=== PATIENT | female | born 1955 | race Caucasian/White ===

== ENCOUNTER 2021-03-17 08:44 | Outpatient (REF) | payer MEDICARE, MEDICAID, SELFPAY | END 2021-03-17 08:45 | disposition home or self-care (01) | LOC: HO.LAB 08:44 | PROVIDERS: Visit Provider Internal Medicine | DX: Z20.822 Contact with and (suspected) exposure to COVID-19 (principal) | CPT/HCPCS: C9803; U0003; U0005 ==

== ENCOUNTER 2021-06-09 11:06 | Outpatient (REF) | payer MEDICARE, OTHER, SELFPAY ==
--- NOTE | ~2021-06-09 | XR_ITS ---
EXAMINATION: XR KNEE, LEFT XR KNEE, RIGHT XR KNEE, BILATERAL STANDING CLINICAL INFORMATION: Pain. COMPARISON: 04/12/2014 TECHNIQUE: AP standing view of both knees. Lateral and sunrise view of both knees. FINDINGS: Left knee: No fracture or subluxation. Mild medial compartment joint space narrowing. Small medial compartment marginal osteophytes which are increased from prior. Small patellofemoral compartment marginal osteophytes with mild narrowing of the joint space. No joint effusion. Right knee: No fracture or subluxation. Mild medial compartment joint space narrowing which is similar to prior. The patellofemoral compartment joint space is maintained with small marginal osteophytes. No joint effusion. XR/XR knee RT 2V IMPRESSION: Mild degenerative change of both knees. Mild progression from prior.
--- NOTE | ~2021-06-09 | XR_ITS ---
EXAMINATION: XR KNEE, LEFT XR KNEE, RIGHT XR KNEE, BILATERAL STANDING CLINICAL INFORMATION: Pain. COMPARISON: 04/12/2014 TECHNIQUE: AP standing view of both knees. Lateral and sunrise view of both knees. FINDINGS: Left knee: No fracture or subluxation. Mild medial compartment joint space narrowing. Small medial compartment marginal osteophytes which are increased from prior. Small patellofemoral compartment marginal osteophytes with mild narrowing of the joint space. No joint effusion. Right knee: No fracture or subluxation. Mild medial compartment joint space narrowing which is similar to prior. The patellofemoral compartment joint space is maintained with small marginal osteophytes. No joint effusion. XR/XR knee standing BI IMPRESSION: Mild degenerative change of both knees. Mild progression from prior.
--- NOTE | ~2021-06-09 | XR_ITS ---
EXAMINATION: XR KNEE, LEFT XR KNEE, RIGHT XR KNEE, BILATERAL STANDING CLINICAL INFORMATION: Pain. COMPARISON: 04/12/2014 TECHNIQUE: AP standing view of both knees. Lateral and sunrise view of both knees. FINDINGS: Left knee: No fracture or subluxation. Mild medial compartment joint space narrowing. Small medial compartment marginal osteophytes which are increased from prior. Small patellofemoral compartment marginal osteophytes with mild narrowing of the joint space. No joint effusion. Right knee: No fracture or subluxation. Mild medial compartment joint space narrowing which is similar to prior. The patellofemoral compartment joint space is maintained with small marginal osteophytes. No joint effusion. XR/XR knee LT 2V IMPRESSION: Mild degenerative change of both knees. Mild progression from prior.
== END 2021-06-09 11:07 | disposition home or self-care (01) ==
LOC: HO.HOSX 11:06
PROVIDERS: PCP Internal Medicine; Visit Provider Physician Assistant
DX: M17.12 Unilateral primary osteoarthritis, left knee (principal); M25.50 Pain in unspecified joint
CPT/HCPCS: 73560; 73565; 99202

== ENCOUNTER 2021-08-28 13:00 | Outpatient (RCR) | payer MEDICARE, OTHER, SELFPAY ==
--- NOTE | 2021-07-07 09:56 | MHC.PT.EP ---
[facility] [place] Office [place] [facility] [place] Office [address] Malvin Valdez [address] [phone] F: [phone] F: [phone] F: [phone] F: [phone] Physical Therapy Plan of Care Date of Evaluation: Date of Surgery: Diagnosis: This is a 66 yo female presenting to skilled PT with with a script for unilateral primary OA, L knee osteo Assessment: This is a 66 yo female presenting to skilled PT with with a script for unilateral primary OA, L knee osteo . She reports her pain started years ago and has been on and off and getting worse since 3 months ago, intermittent in nature (also reports R knee pain). She is being followed by [facility] ortho and is holding on cortisone injections now while trialing PT and referred to rheumatology as well. She is not currently taking anything for the pain but has taken meloxicam and prednisone in the past and Tylenol/ibuprofen as needed now. Pain is located throughout the patella on the L and described as stabbing and achy. Pain increases with bending, squatting, kneeling and going up stairs. Pain decreases with rest. She uses heat when it flares up but states it does not help. The patient also has knee sleeves at home that she hasn't really used. She does not have an appointment to return to ortho. Assessment reveals pain that ranges up to a 6/10. She demos decreased BLE hip ROM, decreased BLE hip strength, impaired gait pattern with pain, impaired joint mobility with crepitus at patella as well as gross functional decline and fear with squatting, bending, kneeling and walking. She is a good candidate for skilled PT 2x/wk for 4 wks however is weary about the benefits of PT so spent time educating her and convincing her. She wants an MRI Frequency and Duration: The patient will be seen 2x/wk for 5wks Short Term Goals: I in HEP Demo hip hinge without cues from PT Tolerate 10 time sit to stand with proper techniques Shelter Goals: Improve hip MMT to at least 4+/5 Demo good squat techniques without pain or fear Improve LEFs by 10 Tolerate treadmill walking for 10 mins Treatment Plan: Modalities to reduce pain, spasms and effusion. Manual therapy to restore motion and function. Therapeutic exercise to improve strength and flexibility. Neuromuscular re-education for posture and balance. Therapeutic activities to return to functional activities of daily living. Electronically signed by: Elyssa Sánchez PT Please sign and return to therapist. Thank you for your referral.
--- NOTE | 2021-09-25 15:29 | MHC.PT.DC ---
[facility] [place] Office [place] Office [place] Office [address] Malvin Valdez [address] [phone] F: [phone] F: [phone] F: [phone] F: [phone] Physical Therapy Discharge Report Diagnosis: This is a 66 yo female presenting to skilled PT with with a script for unilateral primary OA, L knee osteo Date of Surgery: Date of Evaluation: 07/07/21 Date of Discharge: 09/25/21 Treatments to Date: 8 Cancellations to Date: 0 No Shows to Date: 0 Discharge Status: Independent with HEP Patient Elected to Stop Recommend MD Follow-up Discharge Summary: Patient reports unchanging symptoms. She is noncompliant with HEP but did exercises when she came to the clinic. She does not feel like she is progressing with pain. Educated her on holding PT at this time due to lack of change. Educated her to call the referring MD at this time (she has an appt one week from today for a cortisone injection). Educated on her need to continue exercises at home in the mean time. Continues to wear the same footwear; we discussed on need for new shoes. DC'd chart/patient to HEP after 30 days. Electronically signed by: Elyssa Sánchez PT Please sign and return to therapist. Thank you for your referral.
== END 2021-09-25 15:29 | disposition home or self-care (01) ==
LOC: HO.PTCHIC 13:00
PROVIDERS: PCP Internal Medicine; Visit Provider Physician Assistant
DX: M17.12 Unilateral primary osteoarthritis, left knee (principal)
CPT/HCPCS: 97110; 97162

== ENCOUNTER → 2021-09-04 11:25 | Outpatient (BNVA) | payer MEDICARE, OTHER, SELFPAY | PROVIDERS: PCP Internal Medicine; Visit Provider Physician Assistant | DX: M17.12 Unilateral primary osteoarthritis, left knee (principal) | CPT/HCPCS: 20610; 99212; J1040 ==

== ENCOUNTER → 2021-10-06 09:18 | Outpatient (BNVA) | payer MEDICARE, OTHER, SELFPAY | PROVIDERS: PCP Internal Medicine; Visit Provider Nurse Practitioner Family | DX: M47.816 Spondylosis without myelopathy or radiculopathy, lumbar region (principal); R20.0 Anesthesia of skin; R20.2 Paresthesia of skin; G89.29 Other chronic pain; M25.562 Pain in left knee | CPT/HCPCS: 99202 ==

== ENCOUNTER 2021-12-08 12:26 | Outpatient (REF) | payer MEDICARE, OTHER, SELFPAY ==
[2021-12-08 14:19] LABS: Erythrocyte Sedimentation Rate 21 MM/HR (0-20)
== END 2021-12-08 12:27 | disposition home or self-care (01) ==
LOC: HO.10HDL 12:26
PROVIDERS: Visit Provider Nurse Practitioner Family
DX: M17.12 Unilateral primary osteoarthritis, left knee (principal); M47.816 Spondylosis without myelopathy or radiculopathy, lumbar region
CPT/HCPCS: 36415; 85652; 86140; 99212

== ENCOUNTER 2022-06-26 15:21 | Outpatient (REF) | payer MEDICARE, OTHER, SELFPAY ==
[2022-06-26 16:13] LABS: Influenza A PCR NEGATIVE (Negative); Influenza B PCR NEGATIVE (Negative); Resp Syncy Virus RNA Qual PCR NEGATIVE (Negative); SARS COV2 PCR INHOUSE NEGATIVE (Negative)
== END 2022-06-26 15:22 | disposition home or self-care (01) ==
LOC: HO.LNP 15:21
PROVIDERS: Visit Provider Physician Assistant Medical
DX: Z20.822 Contact with and (suspected) exposure to COVID-19 (principal); R05.9 Cough, unspecified
CPT/HCPCS: 0241U

== ENCOUNTER 2023-03-02 13:03 | Outpatient (AMB) | payer MEDICARE, OTHER, SELFPAY ==
--- NOTE | 2023-03-02 13:25 | AM.OFFWIN_ITS ---
Intake Vital Signs 03/02/23 13:27 Height 5 ft 2 in Weight 190 lb BMI 34.7 BP 134/62 Blood Pressure Location Rt brachial Position Sitting Pulse 72 Pulse Source Pulse Oximeter Temp 97.2 F Temp Source Temporal Artery Scan Pulse Oximetry (%) 97 Oxygen Delivery Method Room Air Intake Visit Reasons: EST/vertigo/high bp?(lobby) Intake Note: Pt is here c/o vertigo and a blood pressure check. Patient Tobacco Use Status: Never used Tobacco Allergies No Known Allergies Allergy (Verified 03/02/23 13:26) Medication List - Last Reconciled 03/02/23 by Gillian Boss PA-C calcium carbonate-vitamin D3 600 mg-25 mcg (1,000 unit) caps PO erythromycin 0.5 inches ophthalmic (eye) TID ibuprofen 400 mg PO Q8H PRN meclizine 25 mg PO BID PRN ondansetron HCl 4 mg PO Q8H PRN oxybutynin chloride ER 5 mg PO DAILY pravastatin 20 mg PO DAILY sertraline 100 mg PO DAILY [shoe orthotics As directed] HPI HPI Comments History of Present Illness Details Patient is a 67yo F who presents with dizziness complaint She has hx of back pain and joint pain She states unsure if she has vertigo Woke up yesteray am felt strange but was able to drive and was feeling better Later when she bent over she felt dizziness swaying that is worse with bending over She has symptoms constantly now to a low degree States she finds it difficult to focus or read. Did not drive here She said + mild headache earlier but resolved; 0/10 now No HT or LOC Wears glasses and said no double vision or floaters No CP or SOB or palpitations No numbness, tingling or weakness to extremities She previously had cough 2 weeks ago but resolved Feels like fullness in head. No runny nose or sinus pressure. + ear wax She said she was on oxybutin and they switched to a different one 1 month ago. No other medication changes Family hx of HTN and ? heart condition Negative covid today at home PFSH Medical History High cholesterol Surgical History History of carpal tunnel surgery Hx laparoscopic cholecystectomy Hx of colonoscopy Family History Father Diabetes Mother Diabetes Sister Melanoma Other Breast cancer Social History Household Members: Family Housing: House Alcohol intake: never Patient Tobacco Use Status: Never used Tobacco e-Cigarette/Vaping Use: Never Used service: No Current occupational status: retired Current occupation: rt hand Review of Systems Const Denies body aches, Denies fever(s), Reports headache(s) (one earlier but resolved) and Denies poor appetite Eyes Denies diplopia, Denies eye discharge, Denies loss of vision, Denies other visual disturbances, Reports requires corrective lenses, Denies spots in vision and Denies tunnel vision ENT Reports vertigo, Reports dizziness, Denies ear discharge, Reports headache(s) (one earlier but resolved), Denies nasal discharge and Denies sore throat Card Denies chest pain, Denies syncope, Denies rapid heart rate and Denies dyspnea Resp Denies cough and Denies dyspnea GI Denies abdominal pain, Denies diarrhea, Denies nausea and Denies vomiting Musc Denies abnormal gait and Denies tingling Neuro Denies Abnormal speech present, Denies abnormal gait, Denies confusion, Reports vertigo, Reports dizziness, Denies syncope, Reports headache(s) (one earlier but resolved), Denies focal weakness, Denies loss of vision, Denies memory loss and Denies tingling Psych Denies confusion and Denies memory loss Physical Exam Vital Signs: Last Vital Signs Temp 97.2 F 03/02/23 13:27 Pulse 72 03/02/23 13:27 BP 134/62 03/02/23 13:27 Pulse Ox 97 03/02/23 13:27 Oxygen Delivery Method Room Air 03/02/23 13:27 BMI result Body Mass Index 34.7 General: Non-toxic, NAD. Speaking full sentences. Skin: Warm dry throughout Eye: PERRL, EOMI without nystagmus HENT: Airway patent. Uvula midline. No pharyngeal erythema or edema. No MERCHANDISING LEAD. + cerumen bilaterally. After cerumen removal; Bilateral canals clear. TM non-erythematous, non-bulging. No TM perforation or hemotympanum noted. Respiratory: CTA bilaterally. No wheezes, rales or rhonchi Cardiac: RRR. No murmur Neurology: A/O x 3. CN 2-12 grossly intact. Negative pronator drift. Finger to nose tracing equal bilaterally. Minimal sway with Rhomberg. No aphasia or facial droop. Equal strength 5/5 toolmaker grade three and lower extremities at knees and ankles. Gait without abnormality Psych: Good mood and affect Const General: No confusion Orientation/consciousness: No confusion Neuro General: No confusion Speech: No Abnormal speech present Office Procedures Cerumen Removal From which ear canal was the cerumen removed: bilateral Removal: otoscope w/curette Notes: patient tolerated procedure well, no complications and ear canal clear [id number] Wax Removal by Spoon/Curette Assessment & Plan Assessment & Plan (1) Dizziness: Code(s): R42 - Dizziness and giddiness (2) Impacted cerumen of both ears: Code(s): H61.23 - Impacted cerumen, bilateral Plan Patient seen and evaluated. She has no neurological deficit on examination and vitals are WNL COVID test was negative a home Discussed in depth differential for dizziness Will hydrate at home Meclazine for dizziness as discussed. With food. Avoid driving with symptoms and medication Discussed posterior CVA is on differential and can not be ruled out in UC. If symptoms unresolved with meclazine, worsen, onset weakness etc go immediately to the ED Patient gave verbal understanding and had no additional questions or concerns at time of discharge F/U with PCP and ED if worse as discussed above. Discussed case with attending prior to d/c All questions answered Medications: New meclizine 25 mg PO BID PRN 14 tabs 0RF dizziness R42 - Dizziness and giddiness Coding Level of Care Code Est Pt Level 3 (65261) Diagnoses Dizziness R42 Impacted cerumen of both ears H61.23 CPT Codes Office Procedure - CPT: 77596-Iqg Wax Removal by Spoon/Curette ([id number])
[2023-03-02 13:27] VITALS: BP 134/62; PULSE 72; TEMP 36.2; O2SAT 97; BMI 34.7
== END 2023-03-02 14:04 | disposition home or self-care (01) ==
PROVIDERS: PCP Internal Medicine; Visit Provider Physician Assistant
DX: R42 Dizziness and giddiness (principal); H61.23 Impacted cerumen, bilateral
CPT/HCPCS: 69210; 99213

== ENCOUNTER 2023-03-14 14:29 | Emergency (ER) | payer MEDICARE, OTHER, SELFPAY ==
--- NOTE | ~2023-03-14 | CT_ITS ---
EXAMINATION: CT HEAD WITHOUT CONTRAST CLINICAL INFORMATION: Dizziness COMPARISON: None available. TECHNIQUE: Contiguous axial imaging was performed from the skull base to vertex without intravenous administration of contrast. This CT examination was performed using dose optimization techniques as appropriate, variously including the following: *Automated exposure control *Adjustment of mA and/or kV according to patient size (this includes techniques or standardized protocols for targeted exams where dose is matched to indication/reason for exam; i.e. extremities or head) *Use of iterative reconstruction technique DLP: 572 mGy-cm FINDINGS: There is no acute intra-axial, extra-axial bleed, masses or midline shift there is no acute infarction in evolution. There is no edema. The gibson to white matter differentiation is maintained normal. The lateral ventricles are symmetrical in size and configuration with mild enlargement. Bone windows reveal no calvarial abnormality. There is no scalp soft tissue abnormality. Bilateral paranasal sinuses and mastoid air cells are well-aerated. CT/CT head/brain wo IV con IMPRESSION: No acute intracranial process seen.
[2023-03-14 14:49] VITALS: BP 126/73; PULSE 72; RESP 20; TEMP 36.2; O2SAT 98; BMI 36.6
--- NOTE | 2023-03-14 14:53 | ED.DIZZY ---
HPI - Dizziness General Chief Complaint: Dizziness Stated Complaint: Dizziness Time Seen by Provider: 03/14/23 19:50 Source: patient Mode of arrival: ambulatory Limitations: no limitations History of Present Illness HPI Narrative: 67 yo female with PMH of HLD, arthritis here with c/o dizziness like she is on a boat and swaying x 10 days. No trauma, no vision changes, no numbness, or weakness. No CP/SOB, no black or bloody stools. She notes it is not positional and happens all the time. She was Rx meclizine and it isn't helping. MD elicited complaint: dizziness and lightheadedness Onset (ago): day(s) (10) Timing: gradual onset and intermittent Severity: moderate Description: lightheadedness History of similar symptoms: No Exacerbating factors: nothing Relieving factors: nothing Associated symptoms: ear discomfort Related Data Home Medications Medication Instructions Recorded Confirmed ondansetron HCl 4 mg tablet 4 mg PO Q8H PRN nausea and vomiting 09/04/21 03/02/23 oxybutynin chloride 5 mg 5 mg PO DAILY 09/04/21 03/02/23 tablet,extended release 24 hr pravastatin 20 mg tablet 20 mg PO DAILY 09/04/21 03/02/23 calcium carbonate 600 mg-vitamin cap PO 12/08/21 03/02/23 D3 25 mcg (1,000 unit) capsule ibuprofen 400 mg tablet 400 mg PO Q8H PRN 12/08/21 03/02/23 sertraline 100 mg tablet 100 mg PO DAILY 12/08/21 03/02/23 Previous Rx's Medication Instructions Recorded shoe orthotics #2 ea 09/04/21 erythromycin 5 mg/gram (0.5 %) eye 0.5 inch ophthalmic (eye) TID #3.5 06/26/22 ointment grams meclizine 25 mg tablet 25 mg PO BID PRN dizziness #14 tabs 03/02/23 carbamide peroxide 6.5 % ear drops 5 drp otic (ear) right DAILY PRN 03/14/23 (Debrox) ear wax 4 days #15 mL Allergies Allergy/AdvReac Type Severity Reaction Status Date / Time No Known Allergies Allergy Verified 03/14/23 14:53 Review of Systems Review of Systems: Constitutional : No Fever, No Chills, No Fatigue ENT/Mouth : No sore throat, No Rhinorrhea Eyes: No Eye Pain, No Swelling, No Redness Cardiovascular : No Chest Pain, No SOB, No Dyspnea on Exertion Respiratory : No Cough, No Sputum Gastrointestinal : No Nausea, No Vomiting, No Diarrhea, No abdominal Pain Genitourinary : No Dysuria, No Urinary Frequency, No Hematuria, Musculoskeletal : No joint pain, No Myalgias, No Joint Swelling Skin : No Skin Lesions, No rash Neuro : No Weakness, No Numbness, pos Dizziness, no Headache Psych : No Anxiety/Panic, No Depression Heme/Lymph: No Bruising, No Bleeding,No Lymphadenopathy Endocrine : No Polyuria, No Polydipsia All other systems reviewed and are negative [facility] Past Medical History Medical History High cholesterol Surgical History Hx of colonoscopy Hx laparoscopic cholecystectomy History of carpal tunnel surgery Family History Family History Father Diabetes Mother Diabetes Sister Melanoma Other Breast cancer Social History Social History Household Members: Family Housing: House Alcohol intake: never Patient Tobacco Use Status: Never used Tobacco Smoked in Last 30 Days: No e-Cigarette/Vaping Use: Never Used Use of substances other than those prescribed or required for medical reasons: No Any prior treatment program specific to substance use: No Advance Directives: No Advance Directives Information Provided: Yes service: No Current occupational status: retired Current occupation: rt hand Physical Exam Vital Signs: Vital Signs: Last Vital Signs Temp 98.1 F 03/14/23 19:49 Pulse 75 03/14/23 19:49 Resp 20 03/14/23 19:49 BP 145/75 H 03/14/23 19:49 Pulse Ox 98 03/14/23 19:49 O2 Del Method Room Air 03/14/23 19:49 BMI result Body Mass Index 36.6 Appearance: Alert. Oriented X3. No acute distress. Eyes: Pupils equal, round and reactive to light. No nystagmus ENT: Pharynx normal. TMs R slight soft cerumen impaction Neck: Normal inspection. Neck supple. CVS: Normal heart rate and rhythm. Pulses normal. Respiratory: No respiratory distress. Breath sounds normal. Abdomen: Soft and non-tender. Skin: Skin warm and dry. Normal skin color. Normal skin turgor. Extremities: No lower extremity edema. No calf ttp Neuro: Oriented X 3. No motor deficit. No sensory deficit. no ataxia Course Course Course Narrative: Patient complains of intermittent episodes of dizziness with a sensation of movement that resolve completely, there is no fainting no chest pain no headache no shortness of breath no vomiting She was seen for this several weeks ago and given a prescription for meclizine which has not helped Right now she is asymptomatic not dizzy Labs and EKG are ordered This is rapid medical exam and triage pending full evaluation and dispo by ER provider Medical Decision Making Medical Decision Making [facility] Narrative: 67 yo female with PMH of arthritis, HLD here with 10 days of vague lightheadedness but no other neuro symptoms has tried meclizine without relief. She has no headaches, she has no CP/SOB and no GIB symptoms. At ths time will need basic labs, EKG, troponin, would expect CT head to show sort of pathology at this time. Differential Diagnosis Differential Diagnoses: The differential diagnosis associated with the presentation includes anemia, dehydration, orthostatic, inner ear issue, posterior stroke Admission/Observation Consideration of admission/observation: Escalation of care including admission/observation considered 10 days of symptoms no signs of stroke can follow up with PCP MRI and carotids will start on 81mg of aspirin Lab Data [facility] Lab Attestation statement: I reviewed the patient's lab results. 03/14/23 15:20 03/14/23 15:20 Labs: Lab Results 03/14/23 Range/Units 15:20 WBC 6.9 (4.8-10.8) X10*3/uL RBC 4.38 (4.20-5.50) X10*6/uL Hgb 13.2 (12.0-16.0) g/dl Hct 40.8 (37.0-47.0) % MCV 93.2 (80.0-98.0) fL MCH 30.1 (27.0-33.0) pg MCHC 32.4 (31.0-35.0) g/dl RDW 12.8 (11.0-16.0) % Plt Count 209 (160-400) X10*3/uL MPV 8.8 L (9.4-12.3) fL Immature Gran % (Auto) 0.4 (0.0-0.4) % Neut % (Auto) 71.6 (45-73) % Lymph % (Auto) 16.1 L (20-40) % [place] % (Auto) 9.9 (2-11) % Eos % (Auto) 1.7 (0-4) % Baso % (Auto) 0.3 (0-2) % Lymph # (Auto) 1.1 L (1.2-4.9) X10*3/uL [place] # (Auto) 0.7 (0.1-1.2) X10*3/uL Eos # (Auto) 0.1 (0.0-0.4) X10*3/uL Baso # (Auto) 0.0 (0.0-0.2) X10*3/uL Abs Immat Gran (auto) 0.03 (0.00-0.03) X10*3/uL Absolute Neuts (auto) 4.9 (2.0-8.3) x10*3/uL Absolute Nucleated RBC 0.000 (0.0-0.012) X10*3/uL Nucleated RBC % (auto) 0.0 (0.0-0.2) /100WBC Sodium 142 (135-145) mmol/L Potassium 4.1 (3.3-5.1) mmol/L Chloride 105 (96-108) mmol/L Carbon Dioxide 28 (22-29) mmol/L Anion Gap 13 (12-20) BUN 9 (9-16) mg/dL Creatinine 0.74 (0.5-1.4) mg/dL Estim Creat Clear Calc 77.3 Estimated GFR > 60 Random Glucose 100 (60-115) mg/dL Calcium 9.8 (8.4-10.2) mg/dL Total Bilirubin 0.3 (0.0-1.0) mg/dL AST 19 (5-31) U/L ALT 19 (0-31) U/L Alkaline Phosphatase 86 (39-117) U/L Troponin I High Sens < 2.7 (<3.5-17.0) ng/L Total Protein 7.4 (6.5-8.0) g/dL Albumin 4.5 (3.5-5.0) g/dL Independent Interpretation I performed an independent interpretation of an: EKG and CT Scan (no stroke) Interpretation: Rate: 64 Rhythm: NSR [place]: normal Normal P waves. Normal ANIRUDH. Normal QRS complex. ST T wave : no RAFI, nonspecific qTC: normal prior studies: no acute ischemia The study has been interpreted contemporaneously by me. .64 Radiology Impression Discussion of test interpretation with radiology: I have reviewed the radiologist's reading. External Record Review External record reviewed: Office record Prescription Management I considered prescription management with: Other Discharge Plan Discharge Clinical Impression: Dizziness Patient Disposition: Home, Self-Care Instructions: Dizziness (ED) Additional Instructions: take 81mg aspirin daily your doctor should follow up with MRI and carotid ultrasounds return for worsening dizziness, numbness, weakness or any other concerns There is no acute intra-axial, extra-axial bleed, masses or midline shift there is no acute infarction in evolution. There is no edema. The gibson to white matter differentiation is maintained normal. The lateral ventricles are symmetrical in size and configuration with mild enlargement. Bone windows reveal no calvarial abnormality. There is no scalp soft tissue abnormality. Bilateral paranasal sinuses and mastoid air cells are well-aerated. CT/CT head/brain wo IV con IMPRESSION: No acute intracranial process seen. Prescriptions: New Debrox 6.5 % drops 5 drp otic (ear) right DAILY PRN (Reason: ear wax) 4 Days Qty: 15 0RF No Action erythromycin 5 mg/gram (0.5 %) ointment 0.5 inch ophthalmic (eye) TID Qty: 3.5 0RF meclizine 25 mg tablet 25 mg PO BID PRN (Reason: dizziness) Qty: 14 0RF pravastatin 20 mg tablet 20 mg PO DAILY oxybutynin chloride 5 mg tablet extended release 24hr 5 mg PO DAILY ondansetron HCl 4 mg tablet 4 mg PO Q8H PRN (Reason: nausea and vomiting) (DME) shoe orthotics See Rx Instructions .Route .MEDSUPPLY Qty: 2 0RF Rx Instructions: As directed sertraline 100 mg tablet 100 mg PO DAILY ibuprofen 400 mg tablet 400 mg PO Q8H PRN calcium carbonate-vitamin D3 600 mg-25 mcg (1,000 unit) capsule PO
--- NOTE | 2023-03-14 14:55 | ECG_ITS ---
Test Reason : DIZZNESS Blood Pressure : / mmHG Vent. Rate : 064 BPM Atrial Rate : 064 BPM P-R Int : 138 ms QRS Dur : 090 ms QT Int : 412 ms P-R-T Axes : 056 036 022 degrees QTc Int : 425 ms Normal sinus rhythm Nonspecific ST abnormality Abnormal ECG No previous ECGs available Referred By: Jeronimo Avitia Electronically Signed By:Everardo Rosa
[2023-03-14 15:24] LABS: MANUAL DIFF FLAG NO
[2023-03-14 15:25] LABS: Basophils Percent Auto 0.3 % (0-2); Eosinophils Absolute Auto 0.1 X10*3/uL (0.0-0.4); Eosinophils Percent Auto 1.7 % (0-4); Hematocrit 40.8 % (37.0-47.0); Hemoglobin 13.2 g/dl (12.0-16.0); Imm Gran Abs Auto 0.03 X10*3/uL (0.00-0.03); Imm Gran Pct Auto 0.4 % (0.0-0.4); Lymphocytes Absolute Auto 1.1 X10*3/uL (1.2-4.9); Lymphocytes Percent Auto 16.1 % (20-40); Mean Corpuscular HGB Conc 32.4 g/dl (31.0-35.0); Mean Corpuscular Hemoglobin 30.1 pg (27.0-33.0); Mean Corpuscular Volume 93.2 fL (80.0-98.0); Mean Platelet Volume 8.8 fL (9.4-12.3); Monocytes Absolute Auto 0.7 X10*3/uL (0.1-1.2); Monocytes Percent Auto 9.9 % (2-11); Neutrophils Absolute Auto 4.9 x10*3/uL (2.0-8.3); Neutrophils Percent Auto 71.6 % (45-73); Platelet Count 209 X10*3/uL (160-400); Red Blood Count 4.38 X10*6/uL (4.20-5.50); Red Cell Distribution Width 12.8 % (11.0-16.0); White Blood Count 6.9 X10*3/uL (4.8-10.8)
[2023-03-14 15:40] LABS: Alanine Aminotransferase 19 U/L (0-31); Albumin Level 4.5 g/dL (3.5-5.0); Alkaline Phosphatase 86 U/L (39-117); Anion Gap 13 (12-20); Aspartate Amino Transferase 19 U/L (5-31); Bilirubin Total 0.3 mg/dL (0.0-1.0); Blood Urea Nitrogen 9 mg/dL (9-16); Calcium 9.8 mg/dL (8.4-10.2); Carbon Dioxide 28 mmol/L (22-29); Chloride 105 mmol/L (96-108); Creatinine Clr Calc Pharmacy 77.3; Estimated Glomerular Filt Rate > 60; Glucose Random 100 mg/dL (60-115); Potassium 4.1 mmol/L (3.3-5.1); Sodium 142 mmol/L (135-145); Total Protein 7.4 g/dL (6.5-8.0)
[2023-03-14 19:49] VITALS: BP 145/75; PULSE 75; RESP 20; TEMP 36.7; O2SAT 98
--- NOTE | 2023-03-14 19:53 | PC.NURSE ---
Pt a&o X4, reports having dizziness that started on 03/02 and has been constant feeling like she is swaying on a boat. This has caused some off balance and she has almost had some falls but ambulated steady on her feet. Denies pain/n/v, no blurry vision, clear speech. Patient reported she had an MRI a couple yers ago at [facility] for a question of a stroke.
[2023-03-14 20:46] LABS: Troponin-I High Sensitivity < 2.7 ng/L (<3.5-17.0)
[2023-03-14 22:00] VITALS: BP 130/72; PULSE 83; RESP 18; O2SAT 95
== END 2023-03-14 22:45 | disposition home or self-care (01) ==
PROVIDERS: Physician Assistant Medical; Emergency Provider Emergency Medicine; PCP Internal Medicine
DX: R42 Dizziness and giddiness (principal); E78.5 Hyperlipidemia, unspecified; Z79.02 Long term (current) use of antithrombotics/antiplatelets; Z79.899 Other long term (current) drug therapy
CPT/HCPCS: 36415; 70450; 80053; 84484; 85025; 93005; 99284

== ENCOUNTER → 2023-03-14 14:55 | Outpatient (BNV) | payer MEDICARE, OTHER, SELFPAY | PROVIDERS: Emergency Provider Emergency Medicine; PCP Internal Medicine; Visit Provider Internal Medicine Cardiovascular Disease | DX: R94.31 Abnormal electrocardiogram [ECG] [EKG] (principal) | CPT/HCPCS: 93010 ==

== ENCOUNTER 2024-03-10 09:14 | Outpatient (AMB) | payer MEDICARE, OTHER, SELFPAY ==
[2024-03-10 10:29] VITALS: BP 118/64; PULSE 98; TEMP 36.6; O2SAT 97; BMI 35.1
--- NOTE | 2024-03-10 10:29 | AM.OFFWIN_ITS ---
Intake Vital Signs 03/10/24 10:29 Height 5 ft 2 in Weight 192 lb BMI 35.1 BP 118/64 Blood Pressure Location Rt brachial Position Sitting Pulse 98 Pulse Source Pulse Oximeter Temp 97.9 F Temp Source Oral Pulse Oximetry (%) 97 Oxygen Delivery Method Room Air Intake Visit Reasons: EP-Stomach pain Intake Note: Pt is here today c/o stomach pain stabbing sensation Right lower quadrant [id number], No NVD sx's Patient Tobacco Use Status: Never used Tobacco Allergies No Known Allergies Allergy (Verified 03/10/24 10:30) Medication List - Last Reconciled 03/10/24 by Ghulam Peña MD cholecalciferol (vitamin D3) 50 mcg PO DAILY ondansetron HCl 4 mg PO Q8H PRN oxybutynin chloride ER 5 mg PO DAILY pravastatin 20 mg PO DAILY sertraline 100 mg PO DAILY [shoe orthotics As directed] HPI EP-Stomach pain HPI Details Patient with a history of cholecystectomy has complaints of an intermittent sharp pain which she indicates is near umbilicus. Not associated with food or with elimination. Denies any nausea, decreased appetite or changes in stools. Denies fevers or chills. Patient says pain comes on primarily while sitting. Last only an instant. PFSH Medical History High cholesterol Surgical History Hx of colonoscopy Hx laparoscopic cholecystectomy History of carpal tunnel surgery Family History Father Diabetes Mother Diabetes Sister Melanoma Other Breast cancer Social History Household Members: Family Housing: House Alcohol intake: never Patient Tobacco Use Status: Never used Tobacco e-Cigarette/Vaping Use: Never Used service: No Current occupational status: retired Current occupation: rt hand Review of Systems Const Details: No fevers or chills Card Details: No chest pain Resp Details: No shortness of breath GI Details: No dysuria Physical Exam Vital Signs: Last Vital Signs Temp 97.9 F 03/10/24 10:29 Pulse 98 03/10/24 10:29 BP 118/64 03/10/24 10:29 Pulse Ox 97 03/10/24 10:29 Oxygen Delivery Method Room Air 03/10/24 10:29 BMI result Body Mass Index 35.1 Const General: no acute distress and well developed Nutritional Appearance: well nourished Orientation/consciousness: patient oriented x3 HEENT Head: Yes normocephalic and Yes atraumatic Eyes General: appearance normal, both eyes and all related structures Pupils: Equal, round and reactive pupils present EOM: EOMs intact bilaterally Resp Effort & Inspection: normal respiratory effort GI Other: Tenderness at right upper quadrant with palpation and also tenderness at right inferior costal margin. No rebound No right lower quadrant tenderness. No tenderness at other regions of abdomen and no umbilical tenderness. No bulging to Valsalva or cough Patient indicates sharp pain is at region of umbilicus when she gets it. No tenderness currently. Neuro General: patient oriented x3 and gait normal Cranial nerves: Yes Equal, round and reactive pupils present Psych Affect: normal affect Results AMB Urinalysis, Automated UA Leukoctes 0 Ernesto/uL Last Edit by Erendira Silva CMA on 03/10/24 11:01 UA Nitrite Negative Last Edit by Erendira Silva CMA on 03/10/24 11:01 UA Urobilinogen 0.2 mg/dL Last Edit by Erendira Silva CMA on 03/10/24 11:01 UA Protein 0 mg/dL Last Edit by Erendira Silva CMA on 03/10/24 11:01 UA pH 6.0 Last Edit by Erendira Silva CMA on 03/10/24 11:01 UA Blood 0 Robb/uL Last Edit by Erendira Silva CMA on 03/10/24 11:01 UA Specific [place] 1.015 Last Edit by Erendira Silva CMA on 03/10/24 11:01 UA Ketone Last Edit by Erendira Silva CMA on 03/10/24 11:01 UA Bilirubin 0 mg/dL Last Edit by Erendira Silva CMA on 03/10/24 11:01 UA Glucose 0 mg/dL Last Edit by Erendira Silva CMA on 03/10/24 11:01 Assessment & Plan Assessment & Plan (1) Abdominal pain: Code(s): R10.9 - Unspecified abdominal pain Plan: 68-year-old female with history of lap cholecystectomy presents with complaints of intermittent brief and sharp pains at umbilicus. She is currently in no distress for current pain. This does not appear to be associated with activities such as eating or stools Patient has no fevers or chills. No decreased appetite or changes in stools. Ambulatory urinalysis negative for infection or blood. She does have some right upper quadrant tenderness to palpation but none elsewhere. She has no rebound tenderness. No evidence of acute abdomen KUB Mild/Moderate stool. Checking CMP and CBC. As above, no evidence of an acute abdomen at this time. Encouraged her to increase her hydration. Will send script for MiraLax. Will follow-up on lab work Strongly encouraged her to return to office or go to ED if worsening. If not improving, follow-up with PCP. Orders: Orders AMB Urinalysis Automated Today Z13.9 - Encounter for screening, unspecified Comprehensive Met. Panel Today R10.9 - Unspecified abdominal pain Lipase Today R10.9 - Unspecified abdominal pain XR KUB Today R10.9 - Unspecified abdominal pain Complete Blood Count Auto Diff Today R10.9 - Unspecified abdominal pain, Z00.00 - Encounter for general adult medical examination without abnormal findings Medications: New polyethylene glycol 3350 (Miralax) 17 grams PO DAILY 14 days 14 ea 0RF Coding Level of Care Code Est Pt Level 3 (53961) Diagnoses Abdominal pain R10.9
== END 2024-03-10 12:04 | disposition home or self-care (01) ==
PROVIDERS: PCP Internal Medicine; Visit Provider Family Medicine
DX: R10.9 Unspecified abdominal pain (principal); Z13.9 Encounter for screening, unspecified

== ENCOUNTER 2024-03-10 09:14 | Outpatient (REF) | payer MEDICARE, OTHER, SELFPAY | END 2024-03-10 09:15 | disposition home or self-care (01) | LOC: HO.LAB 09:14 | PROVIDERS: PCP Internal Medicine | DX: R10.9 Unspecified abdominal pain (principal) | CPT/HCPCS: 36415; 74018; 80053; 81003; 83690; 85025; 99212 ==

== ENCOUNTER 2024-03-10 11:00 | Outpatient (REF) | payer MEDICARE, OTHER, SELFPAY ==
--- NOTE | ~2024-03-10 | XR_ITS ---
EXAMINATION: XR ABDOMEN KUB CLINICAL INDICATION: R10.9 - Unspecified abdominal pain COMPARISON: None available. TECHNIQUE: AP view of the abdomen. FINDINGS: The bowel gas pattern is normal with no evidence of ileus or obstruction. No unusual soft tissue calcifications are noted. The bones are unremarkable. XR/XR KUB IMPRESSION: Unremarkable examination. Electronically signed by: Stefani Nguyen MD 03/10/2024 07:31 PM EST
[2024-03-10 13:35] LABS: MANUAL DIFF FLAG NO
[2024-03-10 13:38] LABS: Basophils Percent Auto 0.5 % (0-2); Eosinophils Absolute Auto 0.1 X10*3/uL (0.0-0.4); Eosinophils Percent Auto 1.7 % (0-4); Hemoglobin 12.7 g/dl (12.0-16.0); Imm Gran Abs Auto 0.02 X10*3/uL (0.00-0.03); Imm Gran Pct Auto 0.3 % (0.0-0.4); Lymphocytes Absolute Auto 1.3 X10*3/uL (1.2-4.9); Lymphocytes Percent Auto 19.8 % (20-40); Mean Corpuscular HGB Conc 33.4 g/dl (31.0-35.0); Mean Corpuscular Hemoglobin 30.2 pg (27.0-33.0); Mean Corpuscular Volume 90.3 fL (80.0-98.0); Mean Platelet Volume 9.3 fL (9.4-12.3); Monocytes Absolute Auto 0.7 X10*3/uL (0.1-1.2); Monocytes Percent Auto 10.2 % (2-11); Neutrophils Absolute Auto 4.5 x10*3/uL (2.0-8.3); Neutrophils Percent Auto 67.5 % (45-73); Platelet Count 225 X10*3/uL (160-400); Red Blood Count 4.21 X10*6/uL (4.20-5.50); Red Cell Distribution Width 12.9 % (11.0-16.0); White Blood Count 6.7 X10*3/uL (4.8-10.8)
[2024-03-10 13:55] LABS: Alanine Aminotransferase 18 U/L (0-31); Albumin Level 4.3 g/dL (3.5-5.0); Alkaline Phosphatase 96 U/L (39-117); Anion Gap 11 (12-20); Aspartate Amino Transferase 22 U/L (5-31); Bilirubin Total 0.3 mg/dL (0.0-1.0); Blood Urea Nitrogen 9 mg/dL (9-16); Calcium 9.4 mg/dL (8.4-10.2); Carbon Dioxide 27 mmol/L (22-29); Chloride 106 mmol/L (96-108); Estimated Glomerular Filt Rate > 60; Glucose Random 83 mg/dL (60-115); Lipase 10 U/L (8-78); Potassium 3.9 mmol/L (3.3-5.1); Sodium 140 mmol/L (135-145); Total Protein 7.1 g/dL (6.5-8.0)
== END 2024-03-10 11:01 | disposition home or self-care (01) ==
LOC: HO.HMGCX 11:00
PROVIDERS: PCP Internal Medicine; Visit Provider Family Medicine
DX: Z13.89 Encounter for screening for other disorder (principal)
CPT/HCPCS: 36415; 74018; 80053; 83690; 85025

== ENCOUNTER 2024-10-18 13:56 | Outpatient (AMB) | payer MEDICARE, OTHER, SELFPAY ==
--- OUTSIDE RECORDS SUMMARY | 2024-10-18 14:39 | XMS_ITS | Clinical Summary ---
Author Organization [address] Address [address] [place], [place] [address], [place] [address] Phone Support Name Relationship Address Phone Carmenza Ann Daughter [address] [place] Junior Ann Son [address] Care Team Providers Care Geodetic Technician Name Role Phone Tri Westbrook MD Primary Care Provider [phone] Allergies No known active allergies Medications meclizine (ANTIVERT) 25 mg tablet Take 1 Tablet by mouth 2 times daily as needed (dizziness). Do not drive or operate heavy machinery while taking medication as it can cause drowsiness 06/01/19 24 Active tolterodine LA (DETROL LA) 4 mg 24 hr capsule Take 1 capsule (4 mg total) by mouth 1 (one) time each day. Active ondansetron ODT (ZOFRAN-ODT) 4 mg disintegrating tablet Take 1 tablet (4 mg total) by mouth every 8 (eight) hours if needed for nausea. 11/10/19 23 Active diclofenac (VOLTAREN) 1 % topical gel Apply 1 Applicator topically 2 times daily as needed (pain). 06/16/19 23 Active acyclovir (ZOVIRAX) 5 % ointment Apply 1 g topically 2 times daily. Every 3 hours while awake. 05/07/19 22 Active sertraline (ZOLOFT) 100 mg tablet TAKE 1 TABLET BY MOUTH AT BEDTIME 90 tablet 09/20/19 25 Active pravastatin (PRAVACHOL) 20 mg tablet TAKE 1 TABLET BY MOUTH AT BEDTIME 90 tablet 09/20/19 25 Active cholecalciferol (VITAMIN D-3) 50 mcg (2,000 unit) tablet TAKE 1 TABLET BY MOUTH DAILY 90 tablet 1 09/26/19 25 Active sertraline (ZOLOFT) 100 mg tablet TAKE 1 TABLET BY MOUTH AT BEDTIME 90 tablet 1 03/20/20 24 2024 Discontinued pravastatin (PRAVACHOL) 20 mg tablet TAKE 1 TABLET BY MOUTH AT BEDTIME 90 tablet 1 03/20/20 24 2024 Discontinued Vitamin D3 50 mcg (2,000 unit) tablet TAKE 1 TABLET BY MOUTH DAILY 90 tablet 06/28/19 25 2024 Discontinued Active Problems Problem Noted Date Diagnosed Date Osteopenia 03/16/2022 Overview (01/06/2024): 08/2021: T-score lumbar (-0.9); hip (-1.1); FRAX 7.8% Prediabetes 03/16/2022 Tubular adenoma 03/16/2022 Overview (01/06/2024): July 2016 - repeat due in 5 years OAB (overactive bladder) 03/05/2021 Obesity (BMI 30.0-34.9) 03/05/2021 History of COVID-19 10/27/2020 Overview (01/06/2024): DX: 10/25/20 Anxiety 02/20/2014 Vitamin D deficiency 05/15/2012 Hypercholesteremia 10/15/2008 GERD (gastroesophageal reflux disease) 9 Headache 10/26/2007 Sciatica 10/26/2007 Spinal stenosis 10/26/2007 Depression 06/24/2005 Overview (01/06/2024): For anxiety as well Encounters Date Type Department Care Team Description 08/02/2024 1:08 PM EDT - 08/02/2024 11:59 PM EDT Hospital Encounter Radiology Department - [address] [address] Encounter for screening mammogram for breast cancer Discharge Disposition: Home or Self Care from Last 3 Months Immunizations Name Administration Dates Next Due Influenza Quadravalent, 0.5m l (Fluad) 65yo and older 12/30/2022 Influenza Quadravalent, MDCK , 0.5ml, preservative free (Flucelvax) 6mo and older 03/07/2019 Influenza Quadravalent, MDCK , 0.5ml, with preservative (Flucelvax) 6mo and older 01/29/2018,12/26/2016 Influenza trivalent, 0.5mL ( Fluzone High-dose) 65yo and older 12/30/2021,01/27/2021 Influenza trivalent, with pr eservative (Fluzone; Afluria) 6mo and older 01/22/2020,12/22/2015,02/21/2015,01/27,12/14/2012,01/04/2012,03/03/2011 ,01/21/2010,01/16/2008,01/26/2007 Pfizer SARS-CoV-2 COVID-19, mRNA, LNP-S, preservative free 07/17/2021,01/13/2021 Pneumococcal conjugate 20 va lent (Prevnar 20, PCV 20) 2mo and older 03/16/2022 Pneumococcal polysaccharide 23 valent (Pneumovax 23) 2yo and older 01/27/2021 SARS-COV-2 (COVID-19) Vaccin e, Unspecified 12/30/2021 Td Tetanus diptheria (Tdvax) 7yo and older 06/22/2016 Tdap Tetanus diptheria acell ular pertussis (Boostrix; Adacel) 7yo and older 04/20/2018,01/26/2007 Zoster recombinant (Shingrix ) 19yo and older 11/14/2017 Surgical History Surgery Date Site/Laterality Comments CARPAL TUNNEL RELEASE 06/2008 PROCEDURE: UT NEUROPLASTY &/TRANSPOS MEDIAN NRV CARPAL TUNNE; COMMENT: 2 surgeries/ W/C. CHOLECYSTECTOMY PROCEDURE: HISTORICAL CHOLECYSTECTOMY COLONOSCOPY 05/09/06 PROCEDURE: HISTORICAL COLONOSCOPY; COMMENT: hemorrhoids COLONOSCOPY W/ POLYPECTOMY 07/28/16 PROCEDURE: UT COLSC FLX W/RMVL OF TUMOR POLYP LESION SNARE TQ; COMMENT: adenomas; repeat in 5 yrs Medical History Medical History Date Comments Carpal tunnel syndrome DX:Carpal tunnel syndrome S/P cardiac catheterization DX:S /P cardiac catheterization; COMMENT: normal vessels. Overactive bladder DX:Overactive bladder Family History Medical History Relation Name Comments Diabetes Father Diabetes Mother Hyperlipidemia Mother Breast cancer Other cousin pat Melanoma Sister Colon cancer Neg Hx Ovarian cancer Neg Hx Pancreatic cancer Neg Hx Prostate cancer Neg Hx Uterine cancer Neg Hx Relation Name Status Comments Daughter Alive Father Mother Other cousin pat Sister Alive Son 1 Alive Son 2 Alive Social History Tobacco Use Types Packs/Day Years Used Date Smoking Tobacco: Never Smokeless Tobacco: Never Alcohol Use Standard Drinks/Week Comments No 0 (1 standard drink = 0.6 oz pur e alcohol) Comments No Sex and Gender Information Value Date Recorded Sex Assigned at Not on file Legal Sex Female 10:09 PM EST Gender Identity Not on file Sexual Orientation Not on file Obstetrics History Para Term AB IAB SAB Ectopic Multiple Livin g Live Births 3 3 3 3 Date Outcome GA Total Labor Labor/2nd/3rd Weight Sex Type Anes PTL Nelly A1 A5 Name Clin Term Term Term Last Filed Vital Signs Vital Sign Reading Time Taken Comments Blood Pressure 126/72 01/04/2024 1:24 PM EDT Pulse 84 01/04/2024 1:24 PM EDT Temperature - - Respiratory Rate - - Oxygen Saturation - - Inhaled Oxygen Concentration - - Weight 87.1 kg (192 lb) 01/04/2024 1:24 PM EDT Height 157.5 cm (5' 2 ) 01/04/2024 1:24 PM EDT Body Mass Index 35.12 01/04/2024 1:24 PM EDT Plan of Treatment Upcoming Encounters Date Type Department Care Team (Late st Contact Info) Description 12/31/2024 9:30 AM EDT Office Visit Adult Medicine [address] [phone] Mathew Andrade PA [address] [place] [phone] Health Maintenance Due Date Last Done Comments Zoster Vaccines (2 of 2) 01/09/2018 11/14/2017 Depression Screening 03/13/2022 Falls Risk Assessment 03/13/2022 Social Influencers of Health Screening 03/13/2022 Medicare Annual Wellness Visit 03/16/2023 03/16/2022 COVID-19 Vaccine ( season) 2024 01/25/2024, 12/30/2021, 07/17/2021, Additional history exists Influenza Vaccine (#1) 2024 , 12/30/2022, 12/30/2021, Additional history exists Cervical Cancer Screening: HPV 12/04/2024 12/05/2019 Breast Cancer Screening 08/02/2026 08/03/19, 07/25/2023, 07/14/2022, Additional history exists Colorectal Cancer Screening: Colonoscopy 11/18/2027 11/17/2022 Cholesterol Screening (Lipid Panel) 03/22/2028 03/22/2023 DTaP,Tdap,and Td Vaccines (4 - Td or Tdap) 04/20/2028 04/20/2018, 06/22/2016, 01/26/2007 Osteoporosis Screening (Bone Density Screening) 08/14/2031 08/13/2021 Hepatitis C Screening Completed 01/26/2007 Pneumococcal Vaccine: 50+ Years Completed 03/16/2022, 01/27/2021 RSV Immunization Adult Patients Completed 04/14/2023 HIB Vaccines Aged Out No longer eligi ble based on patient's age to complete this topic HPV Vaccines Aged Out No longer eligi ble based on patient's age to complete this topic Hepatitis A Vaccines Aged Out No long er eligible based on patient's age to complete this topic Hepatitis B Vaccines Aged Out No long er eligible based on patient's age to complete this topic IPV Vaccines Aged Out No longer eligi ble based on patient's age to complete this topic MMR Vaccines Aged Out No longer eligi ble based on patient's age to complete this topic Meningococcal ACWY Vaccine Aged Out N o longer eligible based on patient's age to complete this topic Meningococcal B Vaccine Aged Out No l onger eligible based on patient's age to complete this topic RSV Immunization Patients Under 20 months Aged Out No longer eligible based on patient's age to complete this topic Varicella Vaccines Aged Out No longer eligible based on patient's age to complete this topic Procedures Procedure Name Priority Date/Time Associated Diagnosis Comments MG MAMMO DIGITAL SCREENING W FARHANA BILAT Routine 08/02/2024 1:27 PM EDT Encounter for screening mammogram for breast cancer LIPID PANEL Routine 03/22/2023 HM COLONOSCOPY Routine 11/17/2022 DXA BONE DENSITY STUDY 1+ SITS AXIAL SKEL Routine 08/13/2021 10:29 AM EDT Encounter for screening for osteoporosis HM HPV Routine 12/05/2019 HM HEPATITIS C SCREENING Routine 01/26/2007 from Last 3 Months or Most Recently Relevant to Health Maintenance Results * MG Mammo Digital Screening w Farhana bilat (08/02/2024 1:27 PM EDT) Anatomical Region Laterality Modality Breast Bilateral Mammography 08/03/2024 9:21 AM EDT Impressions 08/03/2024 9:23 AM EDT No mammographic evidence of malignancy. BI-RADS CATEGORY: 1 - NEGATIVE RECOMMENDATION: Screening bilateral mammogram is recommended in 1 year. Mammo Location: [facility], [address] [place] [address], [facility], . -------- FINAL REPORT -------- Dictated By: Amarilis Desai Dictated Date: 08/03/2024 09:21 ET Assigned Physician: Amarilis Desai Reviewed and Electronically Signed By: Amarilis Desai Signed Date: 08/03/2024 09:23 ET Workstation ID: [id number] Transcribed By: Self Edit Transcribed Date: 08/03/2024 09:21 ET Narrative 08/03/2024 9:23 AM EDT Bilateral screening mammogram. CLINICAL: 69 years old, Female, routine annual exam. COMPARISON: Prior studies, latest from 07/25/2023. TECHNIQUE: Bilateral MLO and CC views were obtained digitally with 2 D C views and 3-D mammogram (digital breast tomosynthesis). Computer-aided detection was utilized in evaluation of this exam (CAD). FINDINGS: There is no evidence of suspicious mass or architectural distortion. No worrisome calcifications are evident. There has been no significant change from prior exam(s). BREAST DENSITY: B - There are scattered areas of fibroglandular density. Procedure Note Amarilis Desai MD - 08/03/2024 Bilateral screening mammogram. CLINICAL: 69 years old, Female, routine annual exam. COMPARISON: Prior studies, latest from 07/25/2023. TECHNIQUE: Bilateral MLO and CC views were obtained digitally with 2 D Cviews and 3-D mammogram (digital breast tomosynthesis). Computer-aideddetection was utilized in evaluation of this exam (CAD). FINDINGS: There is no evidence of suspicious mass or architectural distortion. Noworrisome calcifications are evident. There has been no significantchange from prior exam(s). BREAST DENSITY: B - There are scattered areas of fibroglandular density. IMPRESSION: No mammographic evidence of malignancy. BI-RADS CATEGORY: 1 - NEGATIVE RECOMMENDATION: Screening bilateral mammogram is recommended in 1 year. Mammo Location: [facility], [address] [place] [address], [id number], . -------- FINAL REPORT -------- Dictated By: Amarilis Desai Dictated Date: 08/03/2024 09:21 ET Assigned Physician: Amarilis Desai Reviewed and Electronically Signed By: Amarilis Desai Signed Date: 08/03/2024 09:23 ET Workstation ID: [id number] Transcribed By: Self Edit Transcribed Date: 08/03/2024 09:21 ET us Tri Westbrook MD IMG BI PROCEDURES Final Result * (ABNORMAL) Lipid panel (03/22/2023) LDL/HDL Ratio 3 0 - 4 Triglycerides 160(A) 0 - 150 mg/dL Cholesterol 189 0 - 200 mg/dL HDL 57 >=40 mg/dL LDL Cholesterol 100 0 - 100 mg/dL Blood Venous blood specimen / Unknown us Historical Provider LAB BLOOD ORDERABLES Carrie l Result * Colonoscopy (11/17/2022) Colonoscopy no interpretation , abstracted Anatomical Region Laterality Modality Other us Historical Provider HEALTH MAINTENANCE Final Result * DXA BONE DENSITY STUDY 1+ SITS AXIAL SKEL (08/13/2021 10:29 AM EDT) Anatomical Region Laterality Modality Bone Densitometr y 09/08/2020 3:47 PM EDT Narrative 08/13/2021 4:43 PM EDT BONE DENSITY Lumbar Spine T-score is -0.9 (SD relative to 20-29 y/o adult) Z-score is +0.9 (SD relative to age matched peers) This is normal by criteria defined by the WHO. Left Hip T-score is -1.1 Z-score is +0.4 This is consistent with osteopenia by criteria defined by the WHO. Impression: Based on the World Health Organization criteria, Vimal Ann should be classified as having osteopenia. This patient has a 7.8% risk of major osteoporotic fracture and a 0.6% risk of hip fracture over the next 10 years. (World Health Organization Fracture Risk Assessment) [facility] Department of Internal Medicine recommends using National Osteoporosis Foundation (NOF) guidelines in treatment decisions related to osteoporosis. NOF guidelines suggest considering treatment for postmenopausal women and men aged 50 or older presenting with the following: History of hip or vertebral fracture. T-score less than or equal to -2.5 (DXA) at the femoral neck, total hip, or spine, after appropriate evaluation to exclude secondary causes. Low bone mass (T-score between -1.0 and -2.5 at the femoral neck or spine) AND a 10-year probability of a hip fracture greater than or equal to 3% OR a 10-year probability of a major osteoporosis-related fracture greater than or equal to 20% based on the [place]-adapted WHO algorithm Please note that all treatment decisions require clinical judgment and consideration of individual patient factors, including patient preferences, co-morbidities, previous drug use, risk factors not captured in the FRAX model (e.g., frailty, falls, vitamin D deficiency, increased bone turnover, interval significant decline in bone density) and possible under- or over-estimation of fracture risk by FRAX. Procedure Note Amarilis Desai MD - 03/23/2022 BONE DENSITY Lumbar Spine T-score is -0.9 (SD relative to 20-29 y/o adult) Z-score is +0.9 (SD relative to age matched peers) This is normal by criteria defined by the WHO. Left Hip T-score is -1.1 Z-score is +0.4 This is consistent with osteopenia by criteria defined by the WHO. Impression: Based on the World Health Organization criteria, Vimal Ann shouldbe classified as having osteopenia. This patient has a 7.8% risk of majorosteoporotic fracture and a 0.6% risk of hip fracture over the next 10years. (World Health Organization Fracture Risk Assessment) [facility] Department of Internal Medicine recommendsusing National Osteoporosis Foundation (NOF) guidelines in treatmentdecisions related to osteoporosis. NOF guidelines suggest consideringtreatment for postmenopausal women and men aged 50 or older presentingwith the following: History of hip or vertebral fracture. T-score less than or equal to -2.5 (DXA) at the femoral neck, total hip,or spine, after appropriate evaluation to exclude secondary causes. Low bone mass (T-score between -1.0 and -2.5 at the femoral neck or spine)AND a 10-year probability of a hip fracture greater than or equal to 3% ORa 10-year probability of a major osteoporosis-related fracture greaterthan or equal to 20% based on the [place]-adapted WHO algorithm Please note that all treatment decisions require clinical judgment andconsideration of individual patient factors, including patientpreferences, co-morbidities, previous drug use, risk factors not capturedin the FRAX model (e.g., frailty, falls, vitamin D deficiency, increasedbone turnover, interval significant decline in bone density) and possibleunder- or over-estimation of fracture risk by FRAX. Liliana ANDERSON DXA PROCEDURES Final Resu lt * Cervical Cancer Screening: HPV (12/05/2019) [facility] Cervical Cancer Screening: HPV negative,a bstracted Historical Provider HEALTH MAINTENANCE Final Result * Hepatitis C Screening (01/26/2007) Hepatitis C Screening ABSTRACTED Historical Provider HEALTH MAINTENANCE Final Result from Last 3 Months or Most Recently Relevant to Health Maintenance Insurance MEDIC[place] - [place] [employer] Care Teams Geodetic Technician Relationship Specialty Start Date End Date Tri Westbrook MD [address] [place] [phone] PCP - General Internal Medicine 02/10/24
[2024-10-18 14:49] VITALS: BP 114/62; PULSE 76; TEMP 36.7; O2SAT 98; BMI 34.6
--- NOTE | 2024-10-18 14:49 | AM.OFFWIN_ITS ---
Intake Vital Signs 10/18/24 14:49 Height 5 ft 2 in Weight 189 lb BMI 34.6 BP 114/62 Blood Pressure Location Rt brachial Position Sitting Pulse 76 Pulse Source Pulse Oximeter Temp 98.1 F Temp Source Oral Pulse Oximetry (%) 98 Oxygen Delivery Method Room Air Intake Visit Reasons: EP-chest pain Intake Note: presents with chest pain under right breast for 2 days Patient Tobacco Use Status: Never used Tobacco Allergies No Known Allergies Allergy (Verified 10/18/24 14:53) Medication List - Last Reconciled 10/18/24 by Doreen Curtis PA-C cholecalciferol (vitamin D3) 50 mcg PO DAILY ondansetron HCl 4 mg PO Q8H PRN oxybutynin chloride ER 5 mg PO DAILY polyethylene glycol 3350 (Miralax) 17 grams PO DAILY PRN pravastatin 20 mg PO DAILY sertraline 100 mg PO DAILY [shoe orthotics As directed] Do you need a note to return to daycare/school/sports/work: No HPI HPI Comments History of Present Illness Details History of Present Illness - The patient is a 69-year-old female pr esenting with chest pain exacerbated by movement and deep breathing. - The chest pain began yesterday and was more severe than today. - The pain is located behind the breast and is not reproducible by palpation but is reproducible with movement. - The patient lifted a heavy walker prio r to the onset of pain, which may have contributed to the musculoskeletal nature of the pain. - The patient took Advil, which provided some relief. - The patient reports a cough, which she attributes to gastroesophageal reflux disease (GERD). - The patient has a history of osteopeni a diagnosed five years ago. - The patient has hyperlipidemia but no significant cardiac history. - she denies any episodes of nausea, vom iting, sweating, abdominal pain, abdominal pain which radiates to her back, arm pain, arm numbness and tingling or dizziness or left-sided chest pain PFSH Medical History High cholesterol Surgical History Hx of colonoscopy Hx laparoscopic cholecystectomy History of carpal tunnel surgery Family History Father Diabetes Mother Diabetes Sister Melanoma Other Breast cancer Social History Household Members: Family Housing: House Alcohol intake: never Patient Tobacco Use Status: Never used Tobacco e-Cigarette/Vaping Use: Never Used service: No Current occupational status: retired Current occupation: rt hand Review of Systems Const All systems reviewed & are unremarkable except as noted in HPI and below Physical Exam Vital Signs: Last Vital Signs Temp 98.1 F 10/18/24 14:49 Pulse 76 10/18/24 14:49 BP 114/62 10/18/24 14:49 Pulse Ox 98 10/18/24 14:49 Oxygen Delivery Method Room Air 10/18/24 14:49 BMI result Body Mass Index 34.6 Const General: cooperative, healthy appearing, comfortable, no acute distress and well developed Orientation/consciousness: patient oriented x3 Limitations: no limitations HEENT Head: Yes normal to inspection Ears: hearing grossly normal bilaterally General nose exam: Normal external nose present Face and sinus: Yes normal facial exam Eyes General: appearance normal, both eyes and all related structures Neck Neck: Yes normal visual inspection and Yes full ROM Chest Chest palpation & inspection: tenderness pectoral muscle on the right Resp Effort & Inspection: normal respiratory effort and able to speak in complete sentences Auscultation: clear to auscultation bilaterally Cardio Rate: regular rate Rhythm: regular rhythm Heart sounds: normal S1 and S2 Skin General skin exam: no rashes or lesions noted Neuro General: patient oriented x3 Extrem General: Yes normal to inspection Office Procedures EKG Details: Normal sinus rhythm at 63 beats per minute, no acute ST or T-wave changes [id number], Complete Assessment & Plan Assessment & Plan (1) Right-sided chest pain: Code(s): R07.9 - Chest pain, unspecified Plan: Vital signs are stable and patient is well-appearing however out of an abundance of caution, we did do an EKG which showed a now normal sinus rhythm at 63 beats per minute, no acute ST or T-wave changes. As she is having some pain with deep inspiration and a slight cough, we will get a chest x-ray to rule out a atypical presentation of pneumonia. It is likely musculoskeletal from lifting her friends heavy walker as it is reproducible and the right-sided pectoral muscle. If the chest x-ray is negative, the patient is advised to take Aleve for musculoskeletal pain managemen We did review red flag symptoms on when to suspect a cardiac issue and when to go to the emergency department. The patient is advised to monitor symptoms and seek emergency care if symptoms worsen or new symptoms develop. Patient was informed and verbally consented to the use of an ambient scribe for clinic note documentation during this visit. (2) Anterior pleuritic pain: Code(s): R07.81 - Pleurodynia Plan: as above Orders: Orders AMB EKG-In Office Today Doreen Curtis PA-C R07.1 - Chest pain on breathing XR chest 2V Today Doreen Curtis PA-C R07.1 - Chest pain on breathing Medications: Changed From polyethylene glycol 3350 (Miralax) 17 grams PO DAILY 14 days 14 ea 0RF To polyethylene glycol 3350 (Miralax) 17 grams PO DAILY PRN Ghulam Peña MD Coding Level of Care Code New Pt Level 4 (01489) Diagnoses Right-sided chest pain R07.9 Anterior pleuritic pain R07.81 CPT Codes EKG - CPT: 43154-[id number], Complete ([id number])
== END 2024-10-18 16:10 | disposition home or self-care (01) ==
PROVIDERS: PCP Internal Medicine; Visit Provider Physician Assistant
DX: R07.9 Chest pain, unspecified (principal); R07.81 Pleurodynia

== ENCOUNTER 2024-10-18 13:56 | Outpatient (REF) | payer MEDICARE, OTHER, SELFPAY ==
--- NOTE | ~2024-10-18 | XR_ITS ---
EXAMINATION: XR CHEST CLINICAL INFORMATION: R07.1 - Chest pain on breathing COMPARISON: None available. TECHNIQUE: 2 views of the chest were obtained. FINDINGS: No significant abnormality is noted involving the heart, lungs, mediastinum, bony thorax or soft tissues. XR/XR chest 2V IMPRESSION: No acute disease Electronically signed by: Angel Quezada MD 10/18/2024 03:59 PM EDT RP
== END 2024-10-18 13:57 | disposition home or self-care (01) ==
LOC: HO.HMGCX 13:56
PROVIDERS: PCP Internal Medicine; Visit Provider Physician Assistant
DX: R07.81 Pleurodynia (principal); R07.1 Chest pain on breathing
CPT/HCPCS: 71046; 93005; 99202

== ENCOUNTER → 2024-10-18 15:49 | Outpatient (BNV) | payer MEDICARE, OTHER, SELFPAY | PROVIDERS: PCP Internal Medicine; Visit Provider Radiology Diagnostic Radiology | DX: R07.1 Chest pain on breathing (principal) | CPT/HCPCS: 71046 ==